=== PATIENT | male | born 1945 | race Caucasian/White ===

== ENCOUNTER → 2019-12-24 | Outpatient (CLI) | payer MEDICARE ==
--- NOTE | 2019-12-25 10:52 | US ---
"EXAMINATION TYPE: US carotid duplex BILAT DATE OF EXAM: 12/24/2019 COMPARISON: NONE CLINICAL HISTORY: I65.23 Occlusion and stenosis of bilateral carotid arteries. EXAM MEASUREMENTS: RIGHT: Peak Systolic Velocity (PSV) cm/sec ----- Right CCA: 108.8 ----- Right ICA: 92.9 ----- Right ECA: 75.4 ICA/CCA ratio: 0.9 RIGHT: End Diastole cm/sec ----- Right CCA: 23.1 ----- Right ICA: 21.7 ----- Right ECA: 11.5 LEFT: Peak Systolic Velocity (PSV) cm/sec ----- Left CCA: 108.2 ----- Left ICA: 92.2 ----- Left ECA: 80.1 ICA/CCA ratio: 0.9 LEFT: End Diastole cm/sec ----- Left CCA: 21.5 ----- Left ICA: 26.3 ----- Left ECA: 15.3 VERTEBRALS (direction of flow): Right Vertebral: Antegrade Left Vertebral: Antegrade Rhythm: Arrhythmia as seen in image 23 Mild amount of plaque bilaterally. Elevated velocities in right and left CCA IMPRESSION: 1. Mild atheromatous plaquing without significant flow-limiting stenosis. 2. A dropped heartbeat appears to be present during this exam. Follow-up with EKG. Criteria for Assigning % of Stenosis / Diameter reduction (Estimation based on the indirect measurements of the internal carotid artery velocities (ICA PSV). 1. Normal (no stenosis)=ICA PSV < 125 cm/s: ratio < 2.0: ICA EDV<40 cm/s. 2. Less than 50% stenosis=ICA PSV < 125 cm/s: ratio < 2.0: ICA EDV<40 cm/s. 3. 50 to 69% stenosis=ICA PSV of 125 to 230 cm/s: ration 2.0 ? 4.0: ICA EDV 40-100 cm/s. 4. Greater than 70% stenosis to near occlusion= ICA PSV > 230 cm/s: ratio > 4.0: ICA EDV > 100 cm/s. 5. Near occlusion= ICA PSV velocities may be low or undetectable: variable ratio and ICA EDV. 6. Total occlusion=unable to detect flow. A [place] level critical message alert has been initiated for Fabrice Messer via the [employer] | Cri tical Results System on 12/25/2019 10:49 AM. This message alert has been sent to Fabrice Messer via the p references provided by the clinician for the receipt of Radiology Critical Findings. [place] ID [id number]."
== END | disposition home or self-care (01) ==
LOC: RADUSWWP 15:38
PROVIDERS: ATTEND Internal Medicine Geriatric Medicine
DX: I65.29 Occlusion and stenosis of unspecified carotid artery (principal)
CPT/HCPCS: 93880

== ENCOUNTER → 2022-09-08 | Outpatient (CLI) | payer MEDICARE ==
--- NOTE | 2022-09-08 14:20 | US ---
EXAMINATION TYPE: US venous doppler duplex LE BI DATE OF EXAM: 09/08/2022 1:19 PM COMPARISON: NONE CLINICAL HISTORY: R60.0 EDEMA. Rt leg edema SIDE PERFORMED: Bilateral TECHNIQUE: The lower extremity deep venous system is examined utilizing real time linear array sonog aditya with graded compression, doppler sonography and color-flow sonography. VESSELS IMAGED: Common Femoral Vein Deep Femoral Vein Greater Saphenous Vein * Femoral Vein Popliteal Vein Small Saphenous Vein * Proximal Calf Veins (* superficial vessels) Right Leg: Negative for DVT Left Leg: Negative for DVT IMPRESSION: 1. Bilateral lower extremity ultrasound negative for deep venous thrombosis.
== END | disposition home or self-care (01) ==
LOC: RADUSWWP 12:57
PROVIDERS: ATTEND Podiatrist Foot & Ankle Surgery
DX: R60.0 Localized edema (principal)
CPT/HCPCS: 93970